=== PATIENT | male | born 1985 | race Caucasian/White ===

== ENCOUNTER 2016-05-10 08:58 | Emergency (ER) | payer OTHER ==
[~2016-05-10] VITALS: Ht 185.4 cm; Wt 66.8 kg
[2016-05-10] MEDS ORDERED: SODIUM CHLORIDE FLUSH 10 ML SYR IV PRN (09:00)
[2016-05-10] MEDS ORDERED: SODIUM CHLORIDE FLUSH 3 ML SYR IV PRN (09:00)
[2016-05-10] MEDS ORDERED: ASPIRIN 81 MG CHEW (CHILDREN'S ASA) PO ONE (09:05)
[2016-05-10 09:07] LABS: BASOPHILS % (AUTO) 1 % (0-2); EOSINOPHILS # (AUTO) 0.6 10^3uL; EOSINOPHILS % (AUTO) 9 % (0-4); LYMPHOCYTES # (AUTO) 2.3 X10^3; MEAN CORPUSCULAR HEMOGLOBIN 28.7 PG (26.0-34.0); MEAN CORPUSCULAR HGB CONC 33.8 g/dL (31.0-37.0); MEAN CORPUSCULAR VOLUME 85 FL (80-100); MONOCYTES # (AUTO) 0.8 X10^3; MONOCYTES % (AUTO) 11 % (3-11); NEUTROPHILS # (AUTO) 3.2 X10^3; NEUTROPHILS % (AUTO) 46 % (51-67); PLATELET COUNT 259 10^3uL (150-450); WHITE BLOOD COUNT 6.94 10^3uL (4.0-11.0)
[2016-05-10 09:21] LABS: ALBUMIN 4.5 g/dL (3.4-5.0); ALKALINE PHOSPHATASE 87 U/L (38-126); BUN/CREATININE RATIO 17 (10-20); CALCULATED IONIZED CALCIUM 3.8 mg/dL (3.8-4.6); TOTAL PROTEIN 8.3 g/dL (6.4-8.5)
[2016-05-10] MEDS ORDERED: NITROGLYCERIN SUBLINGUAL 0.4 MG (NITROQUICK) TABLET SL PRN (09:30)
[2016-05-10] MEDS ORDERED: GI COCKTAIL 55 ML UDC PO ONE (09:40)
[2016-05-10] MEDS ORDERED: MAG HYDROX/AL HYDROX/SIMETH 400-400-40/5 ML (MAG-AL PLUS XS) 30 ML UDC ONE (09:42)
[2016-05-10] MEDS ORDERED: LIDOCAINE 2% VISCOUS 20ML UDC PO ONE (09:42)
[2016-05-10] MEDS ORDERED: BELLADONNA/PHENOBARBITAL ELIXIR (DONNATAL) 10 ML UDC ONE (09:42)
[2016-05-10 10:14] LABS: AMPHETAMINE SCREEN, URINE Negative (Negative); CANNABINOID SCREEN, URINE Positive (Negative); METHAMPHETAMINE SCREEN URINE S NEGATIVE (NEGATIVE); OPIATE SCREEN URINE Negative (Negative); PROPOXYPHENE STAT NEGATIVE (NEGATIVE)
[2016-05-10 10:22] VITALS: BP 126/89
== END 2016-05-10 10:20 | disposition home or self-care (01) ==
LOC: EDUNIT# 08:58 → ED 09:01
DX: R07.9 Chest pain, unspecified (principal); I45.19 Other right bundle-branch block
CPT/HCPCS: 36415; 71020; 80053; 80307; 84484; 85025; 85379; 93005; 93010; 99284; 99285